=== PATIENT | female | born 1990 | race Caucasian/White ===

== ENCOUNTER 2022-06-18 17:15 | Inpatient (IN) ==
[2022-06-18] MEDS ORDERED: LIDOCAINE 1% LOCAL 20 ML VIAL INFIL PRN (18:07)
[2022-06-18] MEDS ORDERED: OXYTOCIN 30 UNITS/500 ML BAG IV PRN ×2 (18:07→22:55)
[2022-06-18] MEDS: LACTATED RINGER'S 1,000 ML IV PRN ×3 (18:10→23:55)
[2022-06-18] MEDS ORDERED: ePHEDrine sulfate 50 MG/ML AMP ONE (18:14)
[2022-06-18] MEDS ORDERED: LIDOCAINE 2%/EPINEPHRINE 1:200,000 20 ML SDV ONE (18:15)
[2022-06-18] MEDS ORDERED: SODIUM CHLORIDE 0.9% INJ 10 ML VIAL ONE (18:15)
[2022-06-18] MEDS ORDERED: BUPIVACAINE 0.25% 30 ML VIAL ONE (18:15)
[2022-06-18] MEDS ORDERED: fentaNYL citrate 100 MCG/2 ML VIAL ONE (18:15)
[2022-06-18] MEDS ORDERED: fentaNYL 2MCG/ML ROPIVACAINE 1.25MG/ML 100 ML BAG EPI ONE (18:16)
[2022-06-18] MEDS ORDERED: NALOXONE HCL 0.4 MG/1 ML VIAL/CARP IV PRN (18:48)
[2022-06-18] MEDS ORDERED: ePHEDrine sulfate 50 MG/ML AMP IV PRN (18:48)
[2022-06-18] MEDS ORDERED: NALOXONE HCL 1 MG in SODIUM CHLORIDE 0.9% 1000ML 1,000 ML IV PRN (18:48)
[2022-06-18] MEDS ORDERED: PROMETHAZINE HCL 6.25 MG in SODIUM CHLORIDE 0.9% 50 ML IV PRN (18:48)
[2022-06-18] MEDS ORDERED: fentaNYL 2MCG/ML ROPIVACAINE 1.25MG/ML 100 ML BAG EPI PRN (18:48)
[2022-06-18] MEDS ORDERED: diphenhydrAMINE 50 MG/ML VIAL IV PRN (18:48)
[2022-06-18] MEDS ORDERED: NALBUPHINE HCL INJ 10 MG/ML AMP IV PRN (18:48)
[2022-06-18] MEDS ORDERED: ONDANSETRON INJ 2 MG/ML 2 ML VIAL IV PRN (18:48)
--- NOTE | 2022-06-18 18:48 | Anesthesiology Consultation ---
Date of Service June 18, 2022 Assessment & Plan Chart Review Chart Review: Patient NOT seen in Pre Admission Testing and Acceptable Risk for Labor Epidural Consults Requested none ASA ASA2 Proposed Anesthesia Anesthesia Type: Labor Epidural Risk / Benefits Reviewed With: PT / POA / Parent / Guardian, Accepts Plan and Informed Consent Obtained History Height/Weight Height: 5 ft 7 in Weight: 76.657 kg Allergies Allergy/AdvReac Type Severity Reaction Status Date / Time No Known Allergies Allergy Verified 06/18/22 17:26 Medications Home Medications Medication Instructions Recorded Confirmed Last Taken iron,carbonyl 65 mg-vitamin C 125 1 tab PO DAILY 06/18/22 06/18/22 06/18/22 mg tablet,delayed release (Vitron-C) omeprazole magnesium 20 mg 20 mg PO DAILY 06/18/22 06/18/22 06/18/22 tablet,delayed release (Prilosec OTC) [id number] 1 mg 1 tab PO DAILY 06/18/22 06/18/22 06/18/22 tablet Active Medications Generic Name Dose Route Start Last Admin Trade Name Mihirq PRN Reason Stop Dose Admin Lactated Ringer's 1,000 mls @ 150 mls/hr 06/18/22 18:07 06/18/22 18:47 Lr IV 06/20/22 18:06 150 mls/hr .[id number] PRN Infusion L&D Protocol Protocol Past Medical History Medical History (Updated 06/18/22 @ 17:23 by Jennifer Alfaro, IRASEMA) Acid reflux Anemia taking Vitron C Exercise / Class Metabolic Activity II 4-5 Yardwork/Stairs/Walk up hill Past Family History Family History (Updated 06/18/22 @ 17:24 by Jennifer Alfaro, RN) Grandmother (Paternal) Cancer Grandmother (Maternal) Aortic valvar stenosis Past Surgical History Surgical History (Updated 06/18/22 @ 17:23 by Jennifer Alfaro, RN) History of hand surgery left hand; joint bone seperation. Past Anesthesia History No Hx of Anesthesia Complications and No Family Hx of Anesthesia Complications History of PONV No Hx of PONV and No Hx of Motion Sickness Social History Smoking Status: Never smoker Hx Alcohol Use: No Hx Substance Use: No substance use type: does not use Physical Exam Vital Signs Last Vital Signs Temp 37.0 C 06/18/22 17:21 Pulse 81 06/18/22 18:46 Resp 20 06/18/22 17:21 BP 122/67 06/18/22 18:46 Pulse Ox 100 06/18/22 18:42 ENMT Mouth: no dentition abnormality Thyromental Distance: > or= 3.5 Finger Breadths Mallampati Class: II Neck normal visual inspection Respiratory normal respiratory effort Auscultation: lungs clear to auscultation bilaterally Cardiovascular Rate/Rhythm: regular rate and regular rhythm Psychiatric Orientation: alert
--- NOTE | 2022-06-18 18:56 | History & Physical Report ---
Date of Service June 18, 2022 Assessment & Plan (1) Active labor at term: Plan: 31-year-old -0-0-1 at 38 weeks and 5 days of gestation presenting today with SROM and active labor, Vital signs stable afebrile, GBS negative, No medical problems, Plan to admit, monitor, labs, epidural for pain and anticipate , All questions were answered. (2) Spontaneous rupture of amniotic membranes: Admission and Anticipated Discharge Date Admission Date: June 18, 2022 History of Present Illness Chief Complaint: Leakage of fluid and contractions Primary Care Provider: NO PCP Patient is a 31-year-old -0-0-1 at 38 weeks and 5 days of gestation who felt gush of fluid coming around 3:30 PM and then contractions since then. She has been feeling them every 3 to 4 minutes and very painful. She desires epidural for pain. Her has been uncomplicated, GBS negative. Allergies Allergy/AdvReac Type Severity Reaction Status Date / Time No Known Allergies Allergy Verified 06/18/22 17:26 Home Medications Medication Instructions Recorded Confirmed Type iron,carbonyl 65 mg-vitamin C 125 1 tab PO DAILY 06/18/22 06/18/22 History mg tablet,delayed release (Vitron-C) omeprazole magnesium 20 mg 20 mg PO DAILY 06/18/22 06/18/22 History tablet,delayed release (Prilosec OTC) xafaaqus-[id number]-FA 1 mg 1 tab PO DAILY 06/18/22 06/18/22 History tablet Patient History Medical History Acid reflux Anemia taking Vitron C Surgical History History of hand surgery left hand; joint bone seperation. Family History Grandmother (Paternal) Cancer Grandmother (Maternal) Aortic valvar stenosis Social History Smoking Status: Never smoker Hx Alcohol Use: No Hx Substance Use: No Preferred Language: [place] Visual Impairment: No Limitations Credit Assessment Analyst Required: No Beliefs That Will Affect Care: None marital status: marital status details: Dada Narvaez "Cristian" Current Living Situation: Family Current Living Situation Comment: lives with and daughter (6yo Helga) current occupational status: employed current occupation: [employer] Principle Feels Safe at Home: Yes Safety Concerns: Feels Safe At This Time Assistive Devices: None OB History Full-term in 2016 by myself ENTREPRENEUR History No history of STDs, no history of genital herpes Review of Systems as per Subjective / HPI Physical Exam Constitutional: WD/WN, vitals as above well developed, well nourished and + acute distress (With contractions only, swelling in between) Genitourinary: normal external appearance OB Exam Abdomen: + vertex Manual OB Exam: + cervical dilation 4 cm, + cervical effacement 50% and + station high OB Exam Monitor Tracing: + external uterine monitor used and + category I Grossly ruptured Results & Data ([facility]) Vital Signs (Past 12 Hours) Vital Signs Temp Pulse Resp BP Pulse Ox 06/18/22 18:50 83 117/71 06/18/22 18:47 89 97 06/18/22 18:48 89 123/75 06/18/22 18:46 81 122/67 06/18/22 18:44 81 126/70 06/18/22 18:42 100 06/18/22 18:42 82 06/18/22 18:42 78 120/69 06/18/22 18:40 82 129/71 06/18/22 18:38 82 128/72 06/18/22 18:37 98 H 97 06/18/22 18:32 86 99 06/18/22 18:27 77 96 06/18/22 18:22 81 95 06/18/22 18:17 81 97 06/18/22 18:12 96 06/18/22 18:12 86 06/18/22 18:12 82 128/80 06/18/22 17:21 37.0 C 20 Laboratory Results Lab Results 06/18/22 Range/Units 18:20 SARS-CoV-2, RNA, NAAT NEGATIVE (NEGATIVE)
[2022-06-18 19:12] LABS: Hematocrit (blood only) 35.8 % (37.0-47.0); Hemoglobin 12.3 g/dl (12.0-16.0); Mean Corpuscular Hemoglobin 31.7 pg (25.0-34.0); Mean Corpuscular Hgb Conc 34.4 g/dL (32.0-36.0); Mean Corpuscular Volume 92.3 fL (80.0-100.0); Mean Platelet Volume 10.1 fL (9.4-12.4); Platelet Count 172 K/uL (130-400); RDW Coefficient of Variation 14.7 % (11.5-14.5); RDW Standard Deviation 49.7 fL (36.4-46.3); Red Blood Count 3.88 M/uL (4.20-5.40); White Blood Count 12.44 K/ul (4.8-10.8)
[2022-06-18] MEDS ORDERED: FAMOTIDINE 20 MG TAB PO ONE (19:25)
--- NOTE | 2022-06-18 22:56 | Obstetrical Progress Note ---
Date of Service June 18, 2022 Assessment & Plan Admission and Anticipated Discharge Date Admission Date: June 18, 2022 Subjective Patient is reevaluated She is comfortable now after epidural VE; 6/ 90%/-1 FHR categ I [place] ctxs q2-3 min, palpates mild and short, IUPC is placed Plan to augment with low dose pitocin Results & Data ([facility]) Vital Signs (Past 12 Hours) Vital Signs Temp Pulse Resp BP Pulse Ox 06/18/22 22:53 88 113/63 06/18/22 22:52 80 96 06/18/22 22:47 81 95 06/18/22 22:42 77 94 06/18/22 22:40 83 121/69 06/18/22 22:37 79 94 06/18/22 22:32 95 H 93 06/18/22 22:27 92 H 95 06/18/22 22:25 85 91 06/18/22 22:23 88 119/65 06/18/22 22:22 81 94 06/18/22 22:17 84 93 06/18/22 22:12 90 93 06/18/22 22:10 88 121/60 06/18/22 22:07 84 96 06/18/22 22:02 90 95 06/18/22 21:57 83 96 06/18/22 21:53 88 20 115/68 06/18/22 21:52 83 92 06/18/22 21:47 79 94 06/18/22 21:42 94 H 95 06/18/22 21:40 85 18 123/67 06/18/22 21:37 80 95 06/18/22 21:32 86 93 06/18/22 21:27 79 94 06/18/22 21:24 90 120/71 06/18/22 21:22 87 95 06/18/22 21:23 87 94 06/18/22 21:17 95 06/18/22 21:17 90 06/18/22 21:17 80 94 06/18/22 21:12 78 96 06/18/22 21:11 84 94 06/18/22 21:09 36.9 C 83 20 106/75 06/18/22 21:07 84 96 06/18/22 21:06 78 93 06/18/22 21:02 81 96 06/18/22 20:57 83 94 06/18/22 20:54 84 94 06/18/22 20:52 90 95 06/18/22 20:53 83 18 113/64 06/18/22 20:49 81 94 06/18/22 20:47 83 94 06/18/22 20:42 83 96 06/18/22 20:43 79 94 06/18/22 20:39 79 118/63 06/18/22 20:37 83 95 06/18/22 20:38 85 94 06/18/22 20:32 81 95 06/18/22 20:27 81 94 06/18/22 20:26 106 H 92 06/18/22 20:24 81 20 123/68 06/18/22 20:22 79 98 06/18/22 20:17 88 97 06/18/22 20:12 87 96 06/18/22 20:09 81 114/63 06/18/22 20:07 85 94 06/18/22 20:08 83 93 06/18/22 20:02 85 94 06/18/22 19:57 85 96 06/18/22 19:54 102 H 106/63 06/18/22 19:52 84 96 06/18/22 19:53 94 H 94 06/18/22 19:47 98 H 96 06/18/22 19:46 85 92 06/18/22 19:42 90 96 06/18/22 19:38 82 118/70 06/18/22 19:37 92 H 99 06/18/22 19:32 82 100 06/18/22 19:27 76 96 06/18/22 19:22 89 98 06/18/22 19:19 85 18 113/71 06/18/22 19:17 80 99 06/18/22 19:14 85 18 112/74 06/18/22 19:12 75 98 06/18/22 19:08 77 06/18/22 19:07 83 97 06/18/22 19:08 36.6 C 81 18 112/68 92 06/18/22 19:06 79 121/66 06/18/22 19:04 82 18 124/66 06/18/22 19:02 79 125/68 96 06/18/22 19:01 87 94 06/18/22 19:00 82 18 130/69 02/08/23 18:58 82 121/69 02/08/23 18:57 80 95 06/18/22 18:55 87 94 06/18/22 18:52 97 06/18/22 18:52 85 06/18/22 18:52 89 18 119/75 06/18/22 18:50 83 117/71 06/18/22 18:47 89 97 06/18/22 18:48 89 123/75 06/18/22 18:46 81 18 122/67 06/18/22 18:44 81 18 126/70 06/18/22 18:42 100 06/18/22 18:42 82 06/18/22 18:42 78 18 120/69 06/18/22 18:40 82 129/71 06/18/22 18:38 82 18 128/72 06/18/22 18:37 98 H 97 06/18/22 18:32 86 99 06/18/22 18:27 77 96 06/18/22 18:22 81 95 06/18/22 18:17 81 97 06/18/22 18:12 96 06/18/22 18:12 86 06/18/22 18:12 82 18 128/80 06/18/22 17:21 37.0 C 20
[2022-06-19] MEDS ORDERED: MINERAL OIL 30 ML UDC ONE (00:45)
[2022-06-19] MEDS ORDERED: BENZOCAINE 20% AER SPR 82.5 GM CAN EXT PRN (01:12)
[2022-06-19] MEDS ORDERED: DIPHTHERIA/TETANUS/PERTUSSIS 0.5mL SYR/VIAL (Age 7+yrs) IM ONE (01:12)
[2022-06-19] MEDS ORDERED: bisacodyL 10 MG SUPP PR PRN (01:12)
[2022-06-19] MEDS ORDERED: HYDROCORTISONE ACETATE 25 MG SUPP PR PRN (01:12)
[2022-06-19] MEDS ORDERED: OXYTOCIN 30 UNITS/500 ML BAG IV PRN (01:12)
[2022-06-19] MEDS ORDERED: oxyCODONE/ACETAMINOPHEN 5mg/325mg TAB PO PRN (01:12)
[2022-06-19] MEDS ORDERED: MEASLES, MUMPS & RUBELLA VIRUS VIAL SQ ONE (01:12)
--- NOTE | 2022-06-19 01:16 | Delivery Summary ---
Vaginal Delivery Summary Date of Service June 19, 2022 Vaginal Delivery Summary The patient was found to be fluid dilated and desired to push. She pushed for about 15 minutes and delivered the head without difficulty. The shoulders were delivered with minimal traction and the baby was handed off to the mother that her mouth and nose were suctioned. The cord was clamped times and cut at 1 minute delay. The baby was vigorously moving and crying. Then the vagina and perineum were checked for lacerations. There was a small second-degree perineal laceration from the old scar on the right medial sides. It was repaired with 2-0 Vicryl in a running locked fashion skin in a subcu ticular fashion. And good hemostasis was achieved. The rest of the vagina and perineum were intact. The placenta was found to be in vagina, delivered spontaneously as intact and complete. Uterus was explored and the fundus was firm and the lower segment was cleared of all clots and debris's and EBL was 100 mm. The mom and baby tolerated procedure well. There was a viable male infant delivered at 00 51 AM and Apgars were 8/9 and weight is pending. No complications happened and I was present during whole procedure. At the end of the procedure the sponge needle instrument count was correct x2.
[2022-06-19] MEDS: IBUPROFEN 600 MG TAB PO PRN ×4 (06:25→21:08)
[2022-06-19] MEDS: PANTOprazole 40 MG TAB PO SCH (08:05)
[2022-06-19] MEDS: PRENATAL VITAMIN 1 TAB PO SCH (08:34)
[2022-06-19] MEDS: DOCUSATE SODIUM 100 MG CAP PO SCH ×2 (08:34→20:17)
[2022-06-19] MEDS: FERROUS SULFATE 325 MG TAB PO SCH (08:34)
--- NOTE | 2022-06-19 09:34 | Anesthesia Procedure Note ---
Date of Service June 19, 2022 Anesthesia Post Epidural Note Vital Signs Vital Signs: Temp Pulse Resp BP Pulse Ox O2 Del Method 37.3 C 85 18 111/72 97 06/19/22 04:15 06/19/22 04:15 06/19/22 04:15 06/19/22 04:15 06/19/22 04:15 06/19/22 04:15 Pain Intensity Abdomen: Pain Intensity: 0 Notes Mental Status: alert / awake / arousable and participated in evaluation Patient Amnestic to Procedure: No Nausea / Vomiting: adequately controlled Pain: adequately controlled Airway Patency, RR, SpO2: stable & adequate BP & HR: stable & adequate Hydration State: stable & adequate Neuraxial Anesthesia: was administered and sensory block resolved Anesthetic Complications: no major complications apparent and Pt Satisfied with anesthetic care Epidural: Removed without complications and With tip intact
[2022-06-19] MEDS: ACETAMINOPHEN 325 MG TAB PO PRN (23:41)
[2022-06-20] MEDS: IBUPROFEN 600 MG TAB PO PRN ×3 (02:36→11:48)
[2022-06-20] MEDS: ACETAMINOPHEN 325 MG TAB PO PRN ×2 (05:05→11:48)
[2022-06-20 06:17] LABS: Hematocrit (blood only) 31.7 % (37.0-47.0); Hemoglobin 10.9 g/dl (12.0-16.0); Mean Corpuscular Hemoglobin 31.8 pg (25.0-34.0); Mean Corpuscular Hgb Conc 34.4 g/dL (32.0-36.0); Mean Corpuscular Volume 92.4 fL (80.0-100.0); Mean Platelet Volume 9.9 fL (9.4-12.4); Platelet Count 153 K/uL (130-400); RDW Standard Deviation 50.8 fL (36.4-46.3); Red Blood Count 3.43 M/uL (4.20-5.40); White Blood Count 12.55 K/ul (4.8-10.8)
[2022-06-20] MEDS: FERROUS SULFATE 325 MG TAB PO SCH (07:34)
[2022-06-20] MEDS: PRENATAL VITAMIN 1 TAB PO SCH (07:35)
[2022-06-20] MEDS: DOCUSATE SODIUM 100 MG CAP PO SCH (07:37)
--- NOTE | 2022-06-20 09:04 | Obstetrical Progress Note ---
Date of Service June 20, 2022 Assessment & Plan Admission and Anticipated Discharge Date Admission Date: June 18, 2022 Subjective Patient is seen and examined. She feels well, no complaints. Ambulating without dizziness Voiding without difficulty Tolerating regular diet with out N&V Bleeding is minimal No fever/ chills/ CP/ SOB/ N&V/ Leg pain Bottle feeding without problems Vital Signs Temp Pulse Resp BP Pulse Ox O2 Del Method 06/19/22 23:38 36.7 C 75 16 113/75 97 Room Air Lab Results 06/18/22 06/18/22 06/20/22 Range/Units 18:20 18:56 06:00 WBC 12.44 H 12.55 H (4.8-10.8) K/ul RBC 3.88 L 3.43 L (4.20-5.40) M/uL Hgb 12.3 10.9 L (12.0-16.0) g/dl Hct 35.8 L 31.7 L (37.0-47.0) % MCV 92.3 92.4 (80.0-100.0) fL MCH 31.7 31.8 (25.0-34.0) pg MCHC 34.4 34.4 (32.0-36.0) g/dL RDW Std Deviation 49.7 H 50.8 H (36.4-46.3) fL RDW Coeff of Rafa 14.7 H 15.0 H (11.5-14.5) % Plt Count 172 153 (130-400) K/uL MPV 10.1 9.9 (9.4-12.4) fL SARS-CoV-2, RNA, NAAT NEGATIVE (NEGATIVE) PE: General: Alert, orientedx3, NAD Abd: soft, NT, fundus firm, below Umbilicus Perineum intact, Lochia rubra minimal Ext; NT, no edema AP: 31 yo s/p , ppd# 1 VSS Afebrile doing well Continue routine care Desires d/c today All questions were answered D/C home , f/u in office Results & Data ([facility]) Vital Signs (Past 12 Hours) Vital Signs Temp Pulse Resp BP Pulse Ox O2 Del Method 06/19/22 23:38 36.7 C 75 16 113/75 97 Room Air
[2022-06-20] MEDS: PANTOprazole 40 MG TAB PO SCH (11:48)
[2022-06-20] MEDS ORDERED: bisacodyL 5 MG TABEC PO SCH (20:00)
== END 2022-06-20 12:40 | disposition home or self-care (01) | DRG 807 ==
LOC: OPB 17:15 → 4S1 17:17 → 4E2 06-19 04:52